=== PATIENT | female | born 1925 | race Caucasian/White ===

== ENCOUNTER 2016-06-26 11:09 | Emergency (ER) | payer MEDICARE, OTHER ==
[~2016-06-26] VITALS: Ht 172.7 cm; Wt 66.2 kg
[~2016-06-26 11:09] MED LIST: ALEN70TA5 PO; CALC-67 PO; CYCL1DRO OP; DOCU-27 PO; ENOX60DI SQ; FESO4TAB PO; FLUT12HF3 IH; GABA-585 PO; IPRA3AMP NEB; LEVO75TA5 PO; LIDO700A4 TP; MULT1TAB52 PO; OMEG1CAP38 PO; OXCA150T PO; PANT40TA3 PO; POTA20TA4 PO; PRAM1TAB5 PO; SIMV40TA PO
--- NOTE | 2016-06-26 11:16 | PHYS DOC ---
Adult General HPI HPI Patient is a 89 year old female who presents with bright red blood per rectum. She states is more short the bathroom had a straight low but noticed bright red blood. Now when she stands up he feels weak. She states that this happened before. She is unsure she has hemorrhoids. She currently denies any abdominal pain nausea vomiting chest discomfort or shortness of breath. She is on blood thinners secondary to A. fib. Review of Systems Review of Systems Constitutional: Denies fever or chills [] Eyes: Denies change in visual acuity, redness, or eye pain [] HENT: Denies nasal congestion or sore throat [] Respiratory: Denies cough or shortness of breath [] Cardiovascular: No additional information not addressed in HPI [] GI: Denies abdominal pain, nausea, vomiting, or diarrhea, positive for blood in her stool [] : Denies dysuria or hematuria [] Musculoskeletal: Denies back pain or joint pain [] Integument: Denies rash or skin lesions [] Neurologic: Denies headache, focal weakness or sensory changes [] Endocrine: Denies polyuria or polydipsia [] Current Medications Current Medications Current Medications Medications (Trade) Dose Ordered Sig/Marcie Start Time Stop Time Status Last Admin Dose Admin Ceftriaxone Sodium 1 gm/ Sodium Chloride 50 ml @ 100 mls/hr Q24H 06/27/16 14:30 Ceftriaxone Sodium (Rocephin 1gm Ivpb For Omni) 50 ml @ 100 mls/hr 1X ONCE 06/26/16 14:30 06/26/16 14:59 DC 06/26/16 15:05 100 MLS/HR Allergies Allergies Allergies Coded Allergies Type Severity Reaction Last Updated Verified Sulfa (Sulfonamide Antibiotics) Allergy Intermediate 01/26/16 Yes ciprofloxacin Allergy Intermediate 01/26/16 Yes diphenhydramine Allergy Intermediate 01/26/16 Yes Physical Exam Physical Exam Constitutional: Well developed, well nourished, no acute distress, non-toxic appearance. [] HENT: Normocephalic, atraumatic, bilateral external ears normal, oropharynx moist, no oral exudates, nose normal. [] Eyes: PERRLA, EOMI, conjunctiva normal, no discharge. [] Neck: Normal range of motion, no tenderness, supple, no stridor. [] Cardiovascular:Heart rate regular rhythm, no murmur [] Lungs & Thorax: Bilateral breath sounds clear to auscultation [] Abdomen: Bowel sounds normal, soft, no tenderness, no masses, no pulsatile masses. [] Skin: Warm, dry, no erythema, no rash. [] Back: No tenderness, no CVA tenderness. [] Extremities: No tenderness, no cyanosis, no clubbing, ROM intact, no edema. [] Neurologic: Alert and oriented X 3, normal motor function, normal sensory function, no focal deficits noted. [] Psychologic: Affect normal, judgement normal, mood normal. [] Current Patient Data Vital Signs Vital Signs Date Time Temp Pulse Resp B/P Pulse Ox O2 Delivery O2 Flow Rate FiO2 06/26/16 13:49 84 22 139/72 93 Room Air 06/26/16 11:09 98.1 98.1 Lab Values Laboratory Tests Test 06/26/16 11:35 06/26/16 12:31 06/26/16 13:25 White Blood Count 4.6x10^3/uL (4.0-11.0) Red Blood Count 3.53x10^6/uL (3.50-5.40) Hemoglobin 10.6g/dL (12.0-15.5) L Hematocrit 32.4% (36.0-47.0) L Mean Corpuscular Volume 92fL (79-100) Mean Corpuscular Hemoglobin 30pg (25-35) Mean Corpuscular Hemoglobin Concent 33g/dL (31-37) Red Cell Distribution Width 19.6% (11.5-14.5) H Platelet Count 137x10^3/uL (140-400) L Neutrophils (%) (Auto) 63% (31-73) Lymphocytes (%) (Auto) 25% (24-48) Monocytes (%) (Auto) 8% (0-9) Eosinophils (%) (Auto) 4% (0-3) H Basophils (%) (Auto) 1% (0-3) Neutrophils # (Auto) 2.9x10^3uL (1.8-7.7) Lymphocytes # (Auto) 1.1x10^3/uL (1.0-4.8) Monocytes # (Auto) 0.4x10^3/uL (0.0-1.1) Eosinophils # (Auto) 0.2x10^3/uL (0.0-0.7) Basophils # (Auto) 0.0x10^3/uL (0.0-0.2) Prothrombin Time 19.7SEC (11.7-14.0) H Prothrombin Time INR 1.8 (0.8-1.1) H PTT 39SEC (24-38) H Sodium Level 138mmol/L (136-145) Potassium Level 4.6mmol/L (3.5-5.1) Chloride Level 103mmol/L (98-107) Carbon Dioxide Level 27mmol/L (21-32) Anion Gap 8 (6-14) Blood Urea Nitrogen 28mg/dL (7-20) H Creatinine 1.3mg/dL (0.6-1.0) H Estimated GFR (Cockcroft-Gault) 38.6 Glucose Level 101mg/dL (70-99) H Calcium Level 9.1mg/dL (8.5-10.1) Total Bilirubin 0.3mg/dL (0.2-1.0) Direct Bilirubin 0.1mg/dL (0.0-0.2) Aspartate Amino Transferase (AST) 37U/L (15-37) Alanine Aminotransferase (ALT) 27U/L (14-59) Alkaline Phosphatase 101U/L (46-116) Creatine Kinase 28U/L (26-192) Creatine Kinase MB (Mass) 0.8ng/mL (0.0-3.6) Creatine Kinase MB Relative Index % (0-4) Troponin I Quantitative < 0.017ng/mL (0.000-0.055) Total Protein 7.2g/dL (6.4-8.2) Albumin 2.9g/dL (3.4-5.0) L Lipase 271U/L (73-393) Stool Occult Blood Positive (NEG) Urine Collection Type Unknown Urine Color Yellow Urine Clarity Clear Urine pH 7.0 Urine Specific [place] <=1.005 Urine Protein Negativemg/dL (NEG-TRACE) Urine Glucose (UA) Negativemg/dL (NEG) Urine Ketones (Stick) Negativemg/dL (NEG) Urine Blood Moderate (NEG) Urine Nitrite Negative (NEG) Urine Bilirubin Negative (NEG) Urine Urobilinogen Dipstick 0.2mg/dL (0.2 mg/dL) Urine Leukocyte Esterase Large (NEG) Urine RBC 20-40/HPF (0-2) Urine WBC >40/HPF (0-4) Urine Squamous Epithelial Cells Mod/LPF Urine Bacteria Many/HPF (0-FEW) Urine Mucus Slight/LPF Laboratory Tests 06/26/16 11:35 Laboratory Tests 06/26/16 11:35 EKG EKG [] Radiology/Procedures Radiology/Procedures [] Impressions: Rectal bleeding Course & Med Decision Making Course & Med Decision Making Pertinent Labs and Imaging studies reviewed. (See chart for details) Patient's labs do not show any acute abnormalities. The nurses did the rectal exam inform you that it was only a trace amount of blood and it was positive in the lab. She was watched for close to 3 hours and had no other bleeding and has gotten up use a bathroom twice to urinate. She did receive 1 g of Rocephin and she states she is on chronic antibody therapy for UTIs. She is requesting to be discharged home. I did offer admission however she states she feels fine and can follow up tomorrow with her primary care physician. She is to use over-the- counter MiraLAX to help reduce her constipation and she states she can follow- up with her primary care physician tomorrow. She is instructed return ER if she notices any blood per rectum, she feels lightheaded dizzy or has any other concerns. Dragon Disclaimer Dragon Disclaimer This electronic medical record was generated, in whole or in part, using a voice recognition dictation system. Departure Departure Impression: Primary Impression: Rectal bleeding Disposition: HOME, SELF-CARE Condition: STABLE Referrals: NO PCP (PCP) Patient Instructions: Rectal Bleeding Additional Instructions: Your rectal exam showed a trace amount of blood and you've been here for several hours and have not had any additional rectal bleeding. Your requesting to be discharged home. We did treat you for a urinary tract infection with an IV antibiotic. You will need to follow-up with her primary care physician tomorrow. He can take 17 g of MiraLAX once to 2 times a day to help keep her stool soft to help prevent another bleed. If you notice any blood per rectum please return back to emergency department, if you feel lightheaded or dizzy or have any other concerns please return back to the ER. MARIE FROST MD Jun 26, 2016 11:16
--- NOTE | 2016-06-26 11:43 | EKG ---
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
[2016-06-26 11:47] LABS: BASO % 1 % (0-3); EOS % 4 % (0-3); HEMATOCRIT 32.4 % (36.0-47.0); HEMOGLOBIN 10.6 g/dL (12.0-15.5); LYMPH # 1.1 x10^3/uL (1.0-4.8); LYMPH % 25 % (24-48); MEAN CORPUSCULAR HEMOGLOBIN 30 pg (25-35); MEAN CORPUSCULAR HGB CONC 33 g/dL (31-37); MEAN CORPUSCULAR VOLUME 92 fL (79-100); MONO % 8 % (0-9); NEUT % 63 % (31-73); PLATELET COUNT 137 x10^3/uL (140-400); RED BLOOD COUNT 3.53 x10^6/uL (3.50-5.40); RED CELL DISTRIBUTION WIDTH 19.6 % (11.5-14.5); WHITE BLOOD COUNT 4.6 x10^3/uL (4.0-11.0)
[2016-06-26 11:55] LABS: INR 1.8 (0.8-1.1); PROTHROMBIN TIME PATIENT 19.7 SEC (11.7-14.0)
[2016-06-26 12:08] LABS: ALBUMIN 2.9 g/dL (3.4-5.0); CALCIUM 9.1 mg/dL (8.5-10.1); CREATININE 1.3 mg/dL (0.6-1.0); DIRECT BILIRUBIN 0.1 mg/dL (0.0-0.2); GFR 38.6; POTASSIUM 4.6 mmol/L (3.5-5.1); TOTAL BILIRUBIN 0.3 mg/dL (0.2-1.0); TOTAL PROTEIN 7.2 g/dL (6.4-8.2)
[2016-06-26 12:29] LABS: CKMB MASS 0.8 ng/mL (0.0-3.6); CREATINE KINASE 28 U/L (26-192)
[2016-06-26 12:46] LABS: NEG OBC FOB NEG; POS OBC FOB POS
[2016-06-26 13:34] LABS: BILIRUBIN,URINE NEGATIVE (NEG); GLUCOSE,URINE NEGATIVE (NEG); NITRITE,URINE NEGATIVE (NEG); PROTEIN,URINE NEGATIVE (NEG-TRACE); UROBILINOGEN,URINE 0.2 mg/dL (0.2 mg/dL)
[2016-06-26 13:39] LABS: BACTERIA,URINE MANY /HPF (0-FEW); RBC,URINE 20-40 /HPF (0-2); SQUAMOUS EPITHELIAL CELL,UR MOD /LPF; WBC,URINE >40 /HPF (0-4)
[2016-06-26] MEDS ORDERED: CEFTRIAXONE 1GM IVPB FOR OMNI 50 ML IV ONE (14:30)
[2016-06-26 16:30] VITALS: BP 144/72
[2016-06-27] MEDS ORDERED: CEFTRIAXONE SODIUM 1 GM in IV NORMAL SALINE 50ML 50 ML IV SCH (14:30)
== END 2016-06-26 17:35 | disposition home or self-care (01) ==
LOC: ER 11:09
DX: K62.5 Hemorrhage of anus and rectum (principal); K59.00 Constipation, unspecified; R53.1 Weakness; I48.91 Unspecified atrial fibrillation; Z88.2 Allergy status to sulfonamides; Z88.1 Allergy status to other antibiotic agents; Z88.8 Allergy status to other drugs, medicaments and biological substances; Z79.01 Long term (current) use of anticoagulants
CPT/HCPCS: 36415; 80048; 80076; 81001; 82274; 82553; 83690; 84484; 85027; 85610; 85730; 86850; 86900; 86901; 87086; 93005; 96365; 99285; J0690